=== PATIENT | female | born 1950 ===

== ENCOUNTER 2016-08-04 23:49 | Observation (INO) | payer MEDICAID ==
[2016-08-04 23:55] VITALS: BMI 28.5
[2016-08-05] MEDS ORDERED: Metoprolol 1 mg/ml Inj IVP STA (00:23)
--- NOTE | 2016-08-05 00:29 | ED PDOC ---
Arrival/HPI - General Chief Complaint: High Blood Pressure Time Seen by Provider: 08/05/16 00:23 Historian: Patient - History of Present Illness Narrative History of Present Illness (Text): 08/05/16 00:24 Eboni Bridges is a 66 year old female, with a history of hypertension and hypothyroidism, presents to the emergency department for evaluation of palpitations, tremulousness and shakiness which began around 8 p.m. last night. States that her blood pressure has been fluctuating over past few days. Denies fever, chills, headache, dizziness, vision changes, chest pain, shortness of breath, nausea, vomiting, diarrhea, or any other complaints at this time. Time/Duration: 4-6 hours Symptom Onset: Sudden Severity Level: Mild Activities at Onset: Light Past Medical History - Provider Review Nursing Documentation Reviewed: Yes - Infectious Disease Hx of Infectious Diseases: None - Cardiac Hx Hypertension: Yes - Endocrine/Metabolic Hx Hypothyroidism: Yes - Psychiatric Hx Substance Use: No - Anesthesia Hx Anesthesia: No Family/Social History - Physician Review Nursing Documentation Reviewed: Yes Family/Social History: No Known Family HX Smoking Status: Never Smoked Hx Alcohol Use: No Hx Substance Use: No Allergies/Home Meds Allergies/Adverse Reactions: Allergies No Known Allergies Allergy (Verified 08/04/16 23:55) Home Medications: Home Meds Medication Instructions Recorded Confirmed Levothyroxine [Synthroid] 1 tab PO DAILY 08/05/16 08/05/16 Lisinopril [Zestril] 1 tab PO DAILY 08/05/16 08/05/16 Review of Systems - Physician Review All systems were reviewed & negative as marked: Yes - Review of Systems Constitutional: Other (tremulous and shakiness ). absent: Fatigue, Fevers Respiratory: Normal. absent: SOB, Cough Cardiovascular: Palpitations. absent: Chest Pain Gastrointestinal: Normal. absent: Abdominal Pain, Diarrhea, Nausea, Vomiting Skin: Normal Neurological: Normal. absent: Headache, Dizziness Psychiatric: Normal Physical Exam Vital Signs Reviewed: Yes Vital Signs Temp Pulse Resp BP Pulse Ox 08/05/16 00:05 113 H 99 H 183/91 H 20 L 08/04/16 23:58 98.2 F 120 H 21 225/103 H 98 Temperature: Afebrile Blood Pressure: Hypertensive Pulse: Tachycardic Respiratory Rate: Normal Appearance: Positive for: Well-Appearing, Non-Toxic, Comfortable Pain Distress: None Mental Status: Positive for: Alert and Oriented X 3 - Systems Exam Head: Present: Atraumatic, Normocephalic Pupils: Present: PERRL Conjunctiva: Present: Normal Mouth: Present: Moist Mucous Membranes Pharnyx: Present: Normal. No: ERYTHEMA, EXUDATE, TONSILS ENLARGED Respiratory/Chest: Present: Clear to Auscultation, Good Air Exchange. No: Respiratory Distress, Accessory Muscle Use Cardiovascular: Present: Normal S1, S2, Tachycardic. No: Murmurs Lower Extremity: Present: Normal Inspection, NORMAL PULSES. No: Edema Neurological: Present: GCS=15, CN II-XII Intact, Speech Normal Skin: Present: Warm, Dry, Normal Color. No: Rashes Psychiatric: Present: Alert, Oriented x 3, Normal Insight, Normal Concentration Medical Decision Making ED Course and Treatment: 08/05/16 00:31 Impression: A 66 year old female who presents to the emergency department complaining of palpitations, tremulousness and shakiness since 8 pm last night. Differential Diagnosis include but are not limited to: Uncontrolled HTN vs Atypical ACS vs Hyperthyroidism Plan: -- EGK -- Labs, cardiac enzymes -- Chest X-ray -- Lopressor -- Thyroid -- Urinalysis -- Reassess and disposition Progress Notes: 08/05/16 02:04 Patient with noted history with very high BP and tachycardia of 120 on presentation. EKG is noted with ST depressions with sinus tachycardia; no old ekg for comparison. Patient have results of unremarkable echo done outpatient in [facility] several weeks ago. Given IV lopressor with significant improvement of vitals - patient feeling much better - will place on tele on observation for further evaluation and treatment. Case discussed with Dr. Marie, covering the hospitalist service. - Lab Interpretations Lab Results: 08/05/16 00:00 08/05/16 00:00 Lab Results 08/05/16 00:00: Free T4 1.37, TSH 3rd Generation 2.36 08/05/16 00:00: Sodium 143, Potassium 4.1, Chloride 105, Carbon Dioxide 26, Anion Gap 16, BUN 12, Creatinine 0.8, Est GFR ( Amer) > 60, Est GFR (Non- Af Amer) > 60, Random Glucose 133 H, Calcium 10.0, Magnesium 2.2, Total Bilirubin 0.8, AST 33, ALT 38, Alkaline Phosphatase 105, Lactate Dehydrogenase 567, Total Creatine Kinase 105, Troponin I < 0.01, NT-Pro-B Natriuret Pep 41.0, Total Protein 9.2 H, Albumin 4.9 H, Globulin 4.3, Albumin/Globulin Ratio 1.1, Lipase 350 H 08/05/16 00:00: PT 10.3, INR 0.95, APTT 26.0, D-Dimer, Quantitative 0.22 08/05/16 00:00: WBC 7.5, RBC 4.42, Hgb 14.1, Hct 41.3, MCV 93.4, MCH 31.9, MCHC 34.1, RDW 13.0, Plt Count 324, MPV 9.7, Gran % 40.6 L, Lymph % (Auto) 50.8 H, [place] % (Auto) 6.2 H, Eos % (Auto) 2.0, Baso % (Auto) 0.4, Gran # 3.03, Lymph # 3.8 H, [place] # 0.5, Eos # 0.2, Baso # 0.03 - RAD Interpretation Radiology Orders: 08/05/16 00:24 CHEST PORTABLE [RAD] Stat - EKG Interpretation EKG Interpretation (Text): 08/05/16 02:11 sinus tachycardia @ [address] dep laterally; normal intervals and normal axis 08/05/16 02:22 EKG # 2 - s/p lopressor NSR @ 68; normal intervals, normal axis; resolution of ST dep; no ST changes - Medication Orders Current Medication Orders: Discontinued Medications Metoprolol Tartrate (Lopressor) 5 mg IVP STAT STA Stop: 08/05/16 00:24 Last Admin: 08/05/16 00:30 Dose: 5 mg Metoprolol Tartrate (Lopressor) 25 mg PO STAT STA Stop: 08/05/16 00:24 Last Admin: 08/05/16 00:30 Dose: 25 mg - Patiibe Statement The provider has reviewed the documentation as recorded by the Rachel Valentine Provider Attestation: All medical record entries made by the Rachel were at my direction and personally dictated by me. I have reviewed the chart and agree that the record accurately reflects my personal performance of the history, physical exam, medical decision making, and the department course for this patient. I have also personally directed, reviewed, and agree with the discharge instructions and disposition. Disposition/Present on Arrival - Present on Arrival Any Indicators Present on Arrival: No History of DVT/PE: No History of Uncontrolled Diabetes: No Urinary Catheter: No History of Decub. Ulcer: No History Surgical Site Infection Following: None - Disposition Have Diagnosis and Disposition been Completed?: Yes Diagnosis: Uncontrolled hypertension, Tachycardia Disposition: HOSPITALIZED Disposition Time: 14:05 Patient Plan: Observation, Telemetry Condition: FAIR
[2016-08-05 00:42] LABS: BASO # 0.03 K/mm3 (0.0-2.0); BASO % 0.4 % (0.0-3.0); EOS # 0.2 (0.0-0.7); GRAN # 3.03 (1.4-6.5); GRAN % 40.6 % (50.0-68.0); HEMATOCRIT 41.3 % (36.0-48.0); LYMPH # 3.8 (1.2-3.4); LYMPH % 50.8 % (22.0-35.0); MEAN CELL VOLUME 93.4 fL (80.0-105.0); MEAN CORPUSCULAR HEMOGLOBIN 31.9 pg (25.0-35.0); MEAN CORPUSCULAR HGB CONC 34.1 g/dl (31.0-37.0); MEAN PLATELET VOLUME 9.7 fl (7.0-11.0); MONO # 0.5 (0.1-0.6); MONO % 6.2 % (1.0-6.0); PLATELET COUNT 324 10^3/uL (120.0-450.0); WHITE BLOOD COUNT 7.5 10^3/ul (4.5-11.0)
[2016-08-05 00:50] LABS: ALB/GLOB RATIO 1.1 (1.1-1.8); ALKALINE PHOSPHATASE 105 U/L (38-133); ALT/SGPT 38 U/L (7-56); AST/SGOT 33 U/L (15-39); BILIRUBIN,TOTAL 0.8 mg/dL (0.2-1.3); BLOOD UREA NITROGEN 12 mg/dL (7-21); CARBON DIOXIDE 26 mmol/L (21-33); CHLORIDE 105 mmol/L (98-107); GFR AFRICAN-AMERICAN > 60; GLUCOSE,RANDOM 133 mg/dL (70-110); LIPASE 350 U/L (23-300); MAGNESIUM 2.2 mg/dL (1.7-2.2); POTASSIUM 4.1 mmol/L (3.6-5.0); SODIUM 143 mmol/L (132-148); TOTAL PROTEIN 9.2 g/dL (5.8-8.3)
[2016-08-05 01:07] LABS: FREE T4 1.37 ng/dL (0.78-2.19)
[2016-08-05 01:10] LABS: TROPONIN I < 0.01 ng/mL
[2016-08-05 01:19] LABS: INR 0.95 (0.93-1.08)
[2016-08-05 01:20] LABS: D DIMER 0.22 mg/L FEU (0-0.50)
[2016-08-05 01:21] LABS: THYROID STIMULATING HORMONE 2.36 mIU/mL (0.46-4.68)
[2016-08-05 02:12] LABS: URINE BILIRUBIN NEGATIVE (NEGATIVE); URINE BLOOD TRACE-INTACT (NEGATIVE); URINE GLUCOSE (UA) NEGATIVE (NEGATIVE); URINE KETONE NEGATIVE (NEGATIVE); URINE LEUKOCYTE ESTERASE NEGATIVE Leu/uL (NEGATIVE); URINE PROTEIN NEGATIVE mg/dL (<30 mg/dL); URINE UROBILINOGEN 0.2 E.U./dL (<1 E.U./dL)
[2016-08-05 02:29] LABS: URINE APPEARANCE SL CLOUDY (CLEAR); URINE COLOR YELLOW (YELLOW)
[2016-08-05 02:31] LABS: URINE EPITHELIAL CELLS 0 - 2 /hpf (0-5); URINE RBC 0 - 2 /hpf (0-2); URINE WBC 0 - 2 /hpf (0-6)
--- NOTE | 2016-08-05 03:15 | CP.PCM.HP ---
<Emmanuel Sandoval - Last Filed: 08/05/16 03:22> History of Present Illness - History of Present Illness History of Present Illness: CC: "Rapid heart rate, shaky legs" HPI: Pt is a 66 year old female with a PMHx of hypertension and hyperthyroidism who presented to the ED with complaints of tachycardia and palpitations. Pt is accompanied by her daughter at bedside. Pt reports that she felt her heart beating really fast and her legs were shaking earlier today. She reports that she has never had these symptoms before. Pt also reports feeling pins and needles in her legs. Pt denies headache, dizziness, chest pain, shortness of breath, nausea, and vomiting. PMHx: Hypertension, hypothyroidism Home medications: Lisinopri 10 mg po qd, HCTZ 12.5 mg po qd Allergies: NKDA Past Surgical Hx: Hysterectomy (1985) Social Hx: denies hx of tobacco, alcohol, drug use Family Hx: NE, HTN (mother) Present on Admission - Present on Admission Any Indicators Present on Admission: No Review of Systems - Constitutional Constitutional: absent: Chills, Fever - EENT Eyes: absent: Blurred Vision, Change in Vision Ears: absent: Dizziness - Cardiovascular Cardiovascular: Palpitations, Rapid Heart Rate. absent: Chest Pain, Dyspnea, Edema, Syncope - Respiratory Respiratory: absent: Cough, Wheezing - Gastrointestinal Gastrointestinal: absent: Abdominal Pain, Constipation - Genitourinary Genitourinary: absent: Dysuria - Musculoskeletal Musculoskeletal: absent: Arthralgias - Integumentary Integumentary: absent: Bleeding Lesions - Neurological Neurological: Paresthesias. absent: Dizziness, Headaches - Psychiatric Psychiatric: Anxiety - Hematologic/Lymphatic Hematologic: absent: Easy Bleeding, Easy Bruising Past Patient History - Infectious Disease Hx of Infectious Diseases: None - Past Social History Smoking Status: Never Smoked - CARDIAC Hx Hypertension: Yes - ENDOCRINE/METABOLIC Hx Hypothyroidism: Yes - PSYCHIATRIC Hx Substance Use: No - SURGICAL HISTORY Hx Surgeries: No - ANESTHESIA Hx Anesthesia: No Meds Allergies/Adverse Reactions: Allergies Allergy/AdvReac Type Severity Reaction Status Date / Time No Known Allergies Allergy Verified 08/04/16 23:55 Physical Exam - Constitutional Appears: No Acute Distress - Head Exam Head Exam: ATRAUMATIC, NORMOCEPHALIC - Eye Exam Eye Exam: EOMI, PERRL - ENT Exam ENT Exam: Mucous Membranes Moist. absent: Mucous Membranes Dry - Respiratory Exam Respiratory Exam: Clear to Auscultation Bilateral. absent: Rales, Rhonchi, Wheezes - Cardiovascular Exam Cardiovascular Exam: +S1, +S2. absent: Gallop, Rubs - GI/Abdominal Exam GI & Abdominal Exam: Normal Bowel Sounds, Soft. absent: Distended, Guarding, Tenderness - Extremities Exam Extremities exam: Positive for: full ROM. Negative for: pedal edema - Neurological Exam Neurological exam: Alert, Oriented x3 - Psychiatric Exam Psychiatric exam: Normal Affect, Normal Mood - Skin Skin Exam: Normal Color, Warm Results - Vital Signs Recent Vital Signs: Last Vital Signs Temp 98.2 F 08/04/16 23:58 Pulse 82 08/05/16 02:00 Resp 16 08/05/16 02:00 BP 147/77 08/05/16 02:00 Pulse Ox 100 08/05/16 02:00 - Labs Result Diagrams: 08/05/16 00:00 08/05/16 00:00 Assessment & Plan - Assessment and Plan (Free Text) Assessment: Hypertensive Urgency: BP - 225/103 on arrival to the ED HR-120 Lopressor given in ED Initial EKG - LVH, ST depressions, tachycardia Repeat EKG - LVH, normal sinus rhythm Troponins x 1 negative K+ - 4.1 TSH - 2.36 Free T4-1.37 D-dimer - 0.22 Hydralazine 10 mg IV q6h prn HCTZ 25 mg po qd, increased from home disage 12.5 Zestril 20 mg po qd, increased from home dosage of 10 Cardiology, Dr. Fontanez, consulted. Help appreciated. Serial troponins pending Echocardiogram pending Hypothyroidism: Synthroid 75 mcg qd TSH - 2.36 Free T4-1.37 Prophylactic Measures: DVT: SCDs, Heparin 5000 units sc q12h GI: Protonix 40 mg po qd <Cynthia DE LA VEGA,Mark - Last Filed: 08/05/16 14:35> Results - Vital Signs Recent Vital Signs: Last Vital Signs Temp 98.3 F 08/05/16 12:00 Pulse 70 08/05/16 12:00 Resp 20 08/05/16 12:00 BP 178/91 H 08/05/16 12:00 Pulse Ox 97 08/05/16 03:40 - Labs Result Diagrams: 08/05/16 06:30 08/05/16 06:30 Labs: Laboratory Results - last 24 hr 08/05/16 08/05/16 08/05/16 06:30 06:30 06:30 WBC 6.9 RBC 4.26 Hgb 13.6 Hct 40.1 MCV 94.1 MCH 31.9 MCHC 33.9 RDW 13.0 Plt Count 317 MPV 9.7 Gran % 51.1 Lymph % (Auto) 39.0 H [place] % (Auto) 7.3 H Eos % (Auto) 2.2 Baso % (Auto) 0.4 Gran # 3.52 Lymph # 2.7 [place] # 0.5 Eos # 0.2 Baso # 0.03 APTT 27.9 Sodium 144 Potassium 4.4 Chloride 105 Carbon Dioxide 27 Anion Gap 16 BUN 13 Creatinine 0.7 Est GFR ( Amer) > 60 Est GFR (Non-Af Amer) > 60 Random Glucose 84 Calcium 9.8 Phosphorus 3.9 Magnesium 2.2 Total Bilirubin 0.7 AST 38 ALT 35 Alkaline Phosphatase 90 Lactate Dehydrogenase 510 Total Creatine Kinase 87 Troponin I 0.03 D Total Protein 8.3 Albumin 4.4 Globulin 3.9 Albumin/Globulin Ratio 1.1 08/05/16 11:30 WBC RBC Hgb Hct MCV MCH MCHC RDW Plt Count MPV Gran % Lymph % (Auto) [place] % (Auto) Eos % (Auto) Baso % (Auto) Gran # Lymph # [place] # Eos # Baso # APTT Sodium Potassium Chloride Carbon Dioxide Anion Gap BUN Creatinine Est GFR ( Amer) Est GFR (Non-Af Amer) Random Glucose Calcium Phosphorus Magnesium Total Bilirubin AST ALT Alkaline Phosphatase Lactate Dehydrogenase 532 Total Creatine Kinase 114 Troponin I 0.02 D Total Protein Albumin Globulin Albumin/Globulin Ratio Attending/Attestation - Attestation I have personally seen and examined this patient.: Yes I have fully participated in the care of the patient.: Yes I have reviewed all pertinent clinical information: Yes Notes (Text): 08/05/16 14:35 -I agree with the above H&P completed by the resident physician.
[2016-08-05 03:22] LABS: ADD MANUAL DIFF? NO
[2016-08-05 03:49] VITALS: O2SAT 97
[2016-08-05 04:39] VITALS: RESP 20
[2016-08-05] MEDS ORDERED: Pneumococcal 23-Valent Vaccine IM ONE (04:39)
[2016-08-05] MEDS ORDERED: Pantoprazole 40 mg EC Tab PO SCH (07:30)
[2016-08-05 07:56] LABS: ADD MANUAL DIFF? NO
[2016-08-05 07:59] LABS: BASO # 0.03 K/mm3 (0.0-2.0); BASO % 0.4 % (0.0-3.0); EOS # 0.2 (0.0-0.7); EOS % 2.2 % (1.5-5.0); GRAN # 3.52 (1.4-6.5); GRAN % 51.1 % (50.0-68.0); HEMATOCRIT 40.1 % (36.0-48.0); LYMPH # 2.7 (1.2-3.4); MEAN CELL VOLUME 94.1 fL (80.0-105.0); MEAN CORPUSCULAR HEMOGLOBIN 31.9 pg (25.0-35.0); MEAN CORPUSCULAR HGB CONC 33.9 g/dl (31.0-37.0); MEAN PLATELET VOLUME 9.7 fl (7.0-11.0); MONO # 0.5 (0.1-0.6); MONO % 7.3 % (1.0-6.0); PLATELET COUNT 317 10^3/uL (120.0-450.0); WHITE BLOOD COUNT 6.9 10^3/ul (4.5-11.0)
[2016-08-05 08:19] LABS: ALB/GLOB RATIO 1.1 (1.1-1.8); ALKALINE PHOSPHATASE 90 U/L (38-133); ALT/SGPT 35 U/L (7-56); AST/SGOT 38 U/L (15-39); BILIRUBIN,TOTAL 0.7 mg/dL (0.2-1.3); BLOOD UREA NITROGEN 13 mg/dL (7-21); CALCIUM 9.8 mg/dL (8.4-10.5); CARBON DIOXIDE 27 mmol/L (21-33); CHLORIDE 105 mmol/L (98-107); GFR AFRICAN-AMERICAN > 60; GLUCOSE,RANDOM 84 mg/dL (70-110); MAGNESIUM 2.2 mg/dL (1.7-2.2); PHOSPHOROUS 3.9 mg/dL (2.5-4.5); POTASSIUM 4.4 mmol/L (3.6-5.0); SODIUM 144 mmol/L (132-148); TOTAL PROTEIN 8.3 g/dL (5.8-8.3)
[2016-08-05 08:24] LABS: TROPONIN I 0.03 ng/mL
--- NOTE | 2016-08-05 08:53 | RAD ---
HISTORY: tachycardia and palpitations COMPARISON: No prior. FINDINGS: LUNGS: The lungs are well inflated and clear. PLEURA: No significant pleural effusion identified, no pneumothorax apparent. CARDIOVASCULAR: Normal. OSSEOUS STRUCTURES: No significant abnormalities. VISUALIZED UPPER ABDOMEN: Normal. OTHER FINDINGS: None. IMPRESSION: No active cardiopulmonary disease.
[2016-08-05] MEDS ORDERED: Levothyroxine 75 MCG TAB PO SCH (10:00)
[2016-08-05 12:24] LABS: TROPONIN I 0.02 ng/mL
--- NOTE | 2016-08-05 16:48 | CARD ---
APPROVED REPORT EXAM: Two-dimensional and M-mode echocardiogram with Doppler and color Doppler. INDICATION Palpitations TACHY 2D DIMENSIONS Left Atrium (2D)3.0 (1.6-4.0cm)IVSd1.2 (0.7-1.1cm) LVDd4.7 (3.9-5.9cm)PWd1.2 (0.7-1.1cm) LVDs3.2 (2.5-4.0cm)FS (%) 31.6 % LVEF (%)59.5 (>50%) M-Mode DIMENSIONS Aortic Root2.80 (2.2-3.7cm)Aortic Cusp Exc.1.70 (1.5-2.0cm) Aortic Valve AoV Peak Dpgrqxdq465.0cm/Natalie Peak GR.4mmHg Mitral Valve MV E Qfvrsaav18.7cm/sMV A Aysdtwrj84.7cm/sE/A ratio0.7 TDI E/Lateral E'0.0E/Medial E'0.0 Tricuspid Valve TR Peak Ivqnzidg245nl/sRAP [id number] Peak Gr.35mmHg [id number] LEFT VENTRICLE The left ventricle is normal size. There is borderline concentric left ventricular hypertrophy. The left ventricular function is normal. The left ventricular ejection fraction is within the normal range. There is normal LV segmental wall motion. Transmitral Doppler flow pattern is Grade I-abnormal relaxation pattern. RIGHT VENTRICLE The right ventricle is normal size. There is normal right ventricular wall thickness. The right ventricular systolic function is normal. ATRIA The left atrium size is normal. The right atrium size is normal. AORTIC VALVE The aortic valve is not well visualized. MITRAL VALVE The mitral valve is mildly thickened. Mitral regurgitation is trace TRICUSPID VALVE There is mild tricuspid regurgitation. There is mild pulmonary hypertension. GREAT VESSELS The aortic root is normal in size. The IVC is normal in size and collapses >50% with inspiration. PERICARDIAL EFFUSION There is no pericardial effusion. <Conclusion> The left ventricle is normal size. There is borderline concentric left ventricular hypertrophy. The left ventricular function is normal. The left ventricular ejection fraction is within the normal range. There is normal LV segmental wall motion. Transmitral Doppler flow pattern is Grade I-abnormal relaxation pattern. There is mild tricuspid regurgitation. There is mild pulmonary hypertension.
--- NOTE | 2016-08-05 17:04 | CARD ---
APPROVED REPORT EKG Measurement Heart [id number] <Conclusion> Normal sinus rhythm Minimal voltage criteria for LVH, may be normal variant Borderline ECG
--- NOTE | 2016-08-05 17:05 | CARD ---
APPROVED REPORT EKG Measurement Heart [id number] HI [id number] <Conclusion> Normal sinus rhythm Minimal voltage criteria for LVH, may be normal variant Borderline ECG
--- NOTE | 2016-08-05 17:11 | CARD ---
APPROVED REPORT EKG Measurement Heart [id number] <Conclusion> Sinus tachycardia Minimal voltage criteria for LVH, may be normal variant Nonspecific ST and T wave abnormality Abnormal ECG
--- NOTE | 2016-08-05 17:27 | CON ---
DATE: 08/05/2016 REASON FOR CONSULTATION: Palpitation. HISTORY OF PRESENT ILLNESS: The patient is a 66-year-old female who has a history of hypert ension and hypothyroidism on Zestril, hydrochlorothiazide, and Synthroid at home. She presented matthew use of palpitations, shaking and was noticed to be in sinus tachycardia on the monitor. The patient is being treated by a smooth stucco resurfacer in [facility], but does not recall having any cardiac catheteri zation or coronary intervention in the past. The patient denies any associated dizziness, diaphoresi s or syncope. SOCIAL HISTORY: The patient is nonsmoker, nondrinker. MEDICATIONS: The patient's medications at home include Synthroid, hydrochlorothiazide and Zestril. Current hospital medications are: Hydralazine 10 mg intravenously q. 6 hours p.r.n., heparin 5000 un its subcutaneous twice a day, hydrochlorothiazide 25 mg once a day, Protonix 40 mg p.o. once a day, S ynthroid 75 mcg once a day, Zestril 20 mg once a day. REVIEW OF SYSTEMS: No nausea or vomiting. No fever or chills. PAST MEDICAL HISTORY: Insignificant except for palpitation, hypertension and hypothyroidism and vari cose veins. PHYSICAL EXAMINATION: GENERAL: The patient is an elderly female who does not appear to be in any distress. VITAL SIGNS: Blood pressure /91, heart rate 70, temperature 98.3, respirations 20. HEENT: Normocephalic. NECK: No JVD. CHEST: Clear. HEART: S1, S2 regular. ABDOMEN: Soft. EXTREMITIES: Bilateral varicose veins. LABORATORY DATA: CBC: WBC 6.9, hemoglobin and hematocrit 15.6 and 40.1, platelet count 317,000. SM A-7: Sodium 144, potassium 4.4, chloride 105, CO2 27, glucose 84, BUN 13, creatinine 0.7. Three set s of troponins are less than 0.01, 0.03, 0.02. Lipase is elevated at 350. TSH level and free T4 are within normal limits. EKG suggests x-ray was unremarkable. EKG revealed sinus tachycardia at rate of 124. PT, PTT and D-dimer are all within normal limits. ASSESSMENT: 1. Palpitation and sinus tachycardia on admission. The patient is currently in normal sinus rhythm on the monitor. 2. Uncontrolled hypertension. 3. History of hypothyroidism. The patient is currently euthyroid. RECOMMENDATIONS: Continue current Zestril 20 mg once a day, Synthroid 75 mcg once a day, hydrochloro thiazide 25 mg daily, start atenolol at 25 mg orally once a day. I will review the echocardiographic study performed today. Salazar Fontanez MD cc: [id number] TT: 08/05/2016 17:26:52 Confirmation # [id number] Dictation # [id number]
[2016-08-05 17:51] VITALS: BP 162/78; TEMP 98.4
[2016-08-05 18:34] VITALS: PULSE 65
--- NOTE | 2016-08-07 23:27 | CP.PCM.DIS ---
<Iggy Ceja - Last Filed: 08/07/16 23:27> Provider - Provider Date of Admission: 08/05/16 02:23 Attending physician: Nadira Hanna MD Consults: Cardiology Time Spent in preparation of Discharge (in minutes): 25 Hospital Course - Lab Results Lab Results: Most Recent Lab Values WBC 6.9 10^3/ul (4.5-11.0) 08/05/16 06:30 RBC 4.26 10^6/uL (3.5-6.1) 08/05/16 06:30 Hgb 13.6 gm/dL (12.0-16.0) 08/05/16 06:30 Hct 40.1 % (36.0-48.0) 08/05/16 06:30 MCV 94.1 fL (80.0-105.0) 08/05/16 06:30 MCH 31.9 pg (25.0-35.0) 08/05/16 06:30 MCHC 33.9 g/dl (31.0-37.0) 08/05/16 06:30 RDW 13.0 % (11.5-14.5) 08/05/16 06:30 Plt Count 317 10^3/uL (120.0-450.0) 08/05/16 06:30 MPV 9.7 fl (7.0-11.0) 08/05/16 06:30 Gran % 51.1 % (50.0-68.0) 08/05/16 06:30 Lymph % (Auto) 39.0 % (22.0-35.0) H 08/05/16 06:30 [place] % (Auto) 7.3 % (1.0-6.0) H 08/05/16 06:30 Eos % (Auto) 2.2 % (1.5-5.0) 08/05/16 06:30 Baso % (Auto) 0.4 % (0.0-3.0) 08/05/16 06:30 Gran # 3.52 (1.4-6.5) 08/05/16 06:30 Lymph # 2.7 (1.2-3.4) 08/05/16 06:30 [place] # 0.5 (0.1-0.6) 08/05/16 06:30 Eos # 0.2 (0.0-0.7) 08/05/16 06:30 Baso # 0.03 K/mm3 (0.0-2.0) 08/05/16 06:30 PT 10.3 Seconds (9.9-11.8) 08/05/16 00:00 INR 0.95 (0.93-1.08) 08/05/16 00:00 APTT 27.9 Seconds (23.7-30.8) 08/05/16 06:30 D-Dimer, Quantitative 0.22 mg/L FEU (0-0.50) 08/05/16 00:00 Sodium 144 mmol/L (132-148) 08/05/16 06:30 Potassium 4.4 mmol/L (3.6-5.0) 08/05/16 06:30 Chloride 105 mmol/L (98-107) 08/05/16 06:30 Carbon Dioxide 27 mmol/L (21-33) 08/05/16 06:30 Anion Gap 16 (10-20) 08/05/16 06:30 BUN 13 mg/dL (7-21) 08/05/16 06:30 Creatinine 0.7 mg/dL (0.5-1.4) 08/05/16 06:30 Est GFR ( Amer) > 60 08/05/16 06:30 Est GFR (Non-Af Amer) > 60 08/05/16 06:30 Random Glucose 84 mg/dL (70-110) 08/05/16 06:30 Calcium 9.8 mg/dL (8.4-10.5) 08/05/16 06:30 Phosphorus 3.9 mg/dL (2.5-4.5) 08/05/16 06:30 Magnesium 2.2 mg/dL (1.7-2.2) 08/05/16 06:30 Total Bilirubin 0.7 mg/dL (0.2-1.3) 08/05/16 06:30 AST 38 U/L (15-39) 08/05/16 06:30 ALT 35 U/L (7-56) 08/05/16 06:30 Alkaline Phosphatase 90 U/L (38-133) 08/05/16 06:30 Lactate Dehydrogenase 532 U/L (333-699) 08/05/16 11:30 Total Creatine Kinase 114 U/L (35-230) 08/05/16 11:30 Troponin I 0.02 ng/mL D 08/05/16 11:30 NT-Pro-B Natriuret Pep 41.0 pg/mL (0-450) 08/05/16 00:00 Total Protein 8.3 g/dL (5.8-8.3) 08/05/16 06:30 Albumin 4.4 g/dL (3.0-4.8) 08/05/16 06:30 Globulin 3.9 gm/dL 08/05/16 06:30 Albumin/Globulin Ratio 1.1 (1.1-1.8) 08/05/16 06:30 Lipase 350 U/L (23-300) H 08/05/16 00:00 Free T4 1.37 ng/dL (0.78-2.19) 08/05/16 00:00 TSH 3rd Generation 2.36 mIU/mL (0.46-4.68) 08/05/16 00:00 Urine Color Yellow (YELLOW) 08/05/16 01:50 Urine Appearance Sl cloudy (CLEAR) 08/05/16 01:50 Urine pH 7.0 (4.7-8.0) 08/05/16 01:50 Ur Specific [place] 1.010 (1.005-1.035) 08/05/16 01:50 Urine Protein Negative mg/dL (<30 mg/dL) 08/05/16 01:50 Urine Glucose (UA) Negative mg/dL (NEGATIVE) 08/05/16 01:50 Urine Ketones Negative mg/dL (NEGATIVE) 08/05/16 01:50 Urine Blood Trace-intact (NEGATIVE) H 08/05/16 01:50 Urine Nitrate Negative (NEGATIVE) 08/05/16 01:50 Urine Bilirubin Negative (NEGATIVE) 08/05/16 01:50 Urine Urobilinogen 0.2 E.U./dL (<1 E.U./dL) 08/05/16 01:50 Ur Leukocyte Esterase Negative Deepika/uL (NEGATIVE) 08/05/16 01:50 Urine RBC 0 - 2 /hpf (0-2) 08/05/16 01:50 Urine WBC 0 - 2 /hpf (0-6) 08/05/16 01:50 Ur Epithelial Cells 0 - 2 /hpf (0-5) 08/05/16 01:50 - Hospital Course Hospital Course: 08/05 :66 year old female with a PMHx of hypertension and hyperthyroidism who presented to the ED with complaints of tachycardia and palpitations. Pt reports palpitations. She reports that she has never had these symptoms before. Pt also reports feeling pins and needles in her legs. Pt denies headache, dizziness, chest pain, shortness of breath, nausea, and vomiting. 08/05: At time of morning rounds patient's BP has normalized. Patient had no other complaints. She states the symptoms she was originally feeling in her legs had stopped once BP was normal. Patient scheduled for echo this morning. Cardiology reviewed echo, normal, EF of 59.5%. Cardio recs: C/w Zestril 20mg once a day, synthroid 75mcg once a day, HCTZ 25mg dailiy, atenolol 25mg daily. Above is a brief description of patient's hospital summar, for more detailed information please refer to medical records. Discharge Exam - Head Exam Head Exam: ATRAUMATIC, NORMOCEPHALIC - Eye Exam Eye Exam: Normal appearance - ENT Exam ENT Exam: Mucous Membranes Moist - Respiratory Exam Respiratory Exam: NORMAL BREATHING PATTERN - Cardiovascular Exam Cardiovascular Exam: +S1, +S2 - GI/Abdominal Exam GI & Abdominal Exam: Unremarkable - Neurological Exam Neurological exam: Alert, Oriented x3 - Skin Skin Exam: Dry, Intact, Warm Discharge Plan - Discharge Medications Prescriptions: Atenolol [Tenormin] 25 mg PO DAILY #30 tab hydroCHLOROthiazide [Hydrodiuril] 25 mg PO DAILY 30 Days Lisinopril [Zestril] 20 mg PO DAILY 30 Days - Follow Up Plan Condition: FAIR Disposition: HOME/ ROUTINE Instructions: Palpitations (DC), Hypothyroidism (DC), Hypertension (DC), Hypertension (GEN) Additional Instructions: Follow up with PCP in 3 days Follow up with your cardiology in one week Check blood pressure every day <Nadira Hanna MD - Last Filed: 08/15/16 07:36> Provider - Provider Date of Admission: 08/05/16 02:23 Attending physician: Nadira Hanna MD Hospital Course - Lab Results Lab Results: Most Recent Lab Values WBC 6.9 10^3/ul (4.5-11.0) 05/05/17 06:30 RBC 4.26 10^6/uL (3.5-6.1) 08/05/16 06:30 Hgb 13.6 gm/dL (12.0-16.0) 08/05/16 06:30 Hct 40.1 % (36.0-48.0) 08/05/16 06:30 MCV 94.1 fL (80.0-105.0) 08/05/16 06:30 MCH 31.9 pg (25.0-35.0) 08/05/16 06:30 MCHC 33.9 g/dl (31.0-37.0) 08/05/16 06:30 RDW 13.0 % (11.5-14.5) 08/05/16 06:30 Plt Count 317 10^3/uL (120.0-450.0) 08/05/16 06:30 MPV 9.7 fl (7.0-11.0) 08/05/16 06:30 Gran % 51.1 % (50.0-68.0) 08/05/16 06:30 Lymph % (Auto) 39.0 % (22.0-35.0) H 08/05/16 06:30 [place] % (Auto) 7.3 % (1.0-6.0) H 08/05/16 06:30 Eos % (Auto) 2.2 % (1.5-5.0) 08/05/16 06:30 Baso % (Auto) 0.4 % (0.0-3.0) 08/05/16 06:30 Gran # 3.52 (1.4-6.5) 08/05/16 06:30 Lymph # 2.7 (1.2-3.4) 08/05/16 06:30 [place] # 0.5 (0.1-0.6) 08/05/16 06:30 Eos # 0.2 (0.0-0.7) 08/05/16 06:30 Baso # 0.03 K/mm3 (0.0-2.0) 08/05/16 06:30 PT 10.3 Seconds (9.9-11.8) 08/05/16 00:00 INR 0.95 (0.93-1.08) 08/05/16 00:00 APTT 27.9 Seconds (23.7-30.8) 08/05/16 06:30 D-Dimer, Quantitative 0.22 mg/L FEU (0-0.50) 08/05/16 00:00 Sodium 144 mmol/L (132-148) 08/05/16 06:30 Potassium 4.4 mmol/L (3.6-5.0) 08/05/16 06:30 Chloride 105 mmol/L (98-107) 08/05/16 06:30 Carbon Dioxide 27 mmol/L (21-33) 08/05/16 06:30 Anion Gap 16 (10-20) 08/05/16 06:30 BUN 13 mg/dL (7-21) 08/05/16 06:30 Creatinine 0.7 mg/dL (0.5-1.4) 08/05/16 06:30 Est GFR ( Amer) > 60 08/05/16 06:30 Est GFR (Non-Af Amer) > 60 08/05/16 06:30 Random Glucose 84 mg/dL (70-110) 08/05/16 06:30 Calcium 9.8 mg/dL (8.4-10.5) 08/05/16 06:30 Phosphorus 3.9 mg/dL (2.5-4.5) 08/05/16 06:30 Magnesium 2.2 mg/dL (1.7-2.2) 08/05/16 06:30 Total Bilirubin 0.7 mg/dL (0.2-1.3) 08/05/16 06:30 AST 38 U/L (15-39) 08/05/16 06:30 ALT 35 U/L (7-56) 08/05/16 06:30 Alkaline Phosphatase 90 U/L (38-133) 08/05/16 06:30 Lactate Dehydrogenase 532 U/L (333-699) 08/05/16 11:30 Total Creatine Kinase 114 U/L (35-230) 08/05/16 11:30 Troponin I 0.02 ng/mL D 08/05/16 11:30 NT-Pro-B Natriuret Pep 41.0 pg/mL (0-450) 08/05/16 00:00 Total Protein 8.3 g/dL (5.8-8.3) 08/05/16 06:30 Albumin 4.4 g/dL (3.0-4.8) 08/05/16 06:30 Globulin 3.9 gm/dL 08/05/16 06:30 Albumin/Globulin Ratio 1.1 (1.1-1.8) 08/05/16 06:30 Lipase 350 U/L (23-300) H 08/05/16 00:00 Free T4 1.37 ng/dL (0.78-2.19) 08/05/16 00:00 TSH 3rd Generation 2.36 mIU/mL (0.46-4.68) 08/05/16 00:00 Urine Color Yellow (YELLOW) 08/05/16 01:50 Urine Appearance Sl cloudy (CLEAR) 08/05/16 01:50 Urine pH 7.0 (4.7-8.0) 08/05/16 01:50 Ur Specific [place] 1.010 (1.005-1.035) 08/05/16 01:50 Urine Protein Negative mg/dL (<30 mg/dL) 08/05/16 01:50 Urine Glucose (UA) Negative mg/dL (NEGATIVE) 08/05/16 01:50 Urine Ketones Negative mg/dL (NEGATIVE) 08/05/16 01:50 Urine Blood Trace-intact (NEGATIVE) H 08/05/16 01:50 Urine Nitrate Negative (NEGATIVE) 08/05/16 01:50 Urine Bilirubin Negative (NEGATIVE) 08/05/16 01:50 Urine Urobilinogen 0.2 E.U./dL (<1 E.U./dL) 08/05/16 01:50 Ur Leukocyte Esterase Negative Deepika/uL (NEGATIVE) 08/05/16 01:50 Urine RBC 0 - 2 /hpf (0-2) 08/05/16 01:50 Urine WBC 0 - 2 /hpf (0-6) 08/05/16 01:50 Ur Epithelial Cells 0 - 2 /hpf (0-5) 08/05/16 01:50 Attending/Attestation - Attestation I have personally seen and examined this patient.: Yes I have fully participated in the care of the patient.: Yes I have reviewed all pertinent clinical information, including history, physical exam and plan: Yes Notes (Text): 08/15/16 07:31 Patient was seen and examined with medical anthropology director .Agreed with resident assessment and plan. 66 year old female with a PMHx of hypertension and hypothyroidism was admitted with palpitation and uncontrolled HTN.Patient was monitored in telemetry, Tele was unremarkable for any arrhythmia.TSH level was 2.36 .Patient will continue current dose of synthroid 75 MCG daily.Patient was evaluated by cardiology and was started on beta harvey.She remain stable in the hospital.Blood pressure is better controlled.She is ambulatory.She will be discharged home and will follow up with PCP. Management plan was discussed in detail with patient Education was provided. 08/15/16 07:35
== END 2016-08-05 19:55 | disposition home or self-care (01) ==
LOC: ED 23:49 → ERH 08-05 02:23 → 2RNO 08-05 04:14
PROVIDERS: ADMIT Internal Medicine; ATTEND Internal Medicine
DX: I16.0 Hypertensive urgency (principal); E03.9 Hypothyroidism, unspecified; I10 Essential (primary) hypertension; Z79.899 Other long term (current) drug therapy; Z82.49 Family history of ischemic heart disease and other diseases of the circulatory system; Z90.710 Acquired absence of both cervix and uterus; R00.0 Tachycardia, unspecified; R40.2412 Glasgow coma scale score 13-15, at arrival to emergency department; I83.93 Asymptomatic varicose veins of bilateral lower extremities
CPT/HCPCS: 71010; 80053; 81001; 82550; 83615; 83690; 83735; 83880; 84100; 84439; 84443; 84484; 85025; 85378; 85610; 85730; 93005; 93306; 96372; 96374; 99285; G0378; J1644